=== PATIENT | female | born 1990 | race Two or more races ===

== ENCOUNTER 2019-10-15 06:20 | Inpatient (IN) | payer OTHER ==
[2019-10-15] MEDS ORDERED: OXYTOCIN 30 UNITS in 0.9% NS 30 UNIT/500 ML INFUS.BAG IVPB ONE (08:13)
--- NOTE | 2019-10-15 08:20 | HP ---
Past Medical History - Admission Chief Complaint: labor pain History of Present Illness: pt request for induction History Source: Patient Limitations to Obtaining History: No Limitations - Past Medical History TRUCK LOADER OVERHEAD CRANE: No: Alzheimer's, CVA, Dementia, Migraine, Multiple Sclerosis, Peripheral Neuropathy, Parkinson's, Seizure, Syncope, TIA, Vertigo, Other Cardiovascular: No: AFIB, Aneurysm, Aortic Insufficiency, Aortic Stenosis, CAD, CHF, Deep Vein Thrombosis, HTN, Hyperlipdemia, [place], Mitral Insufficiency, Mitral Stenosis, Murmur, Pulmonary Hypertension, Other Pulmonary: No: Asthma, Bronchitis, Cancer, COPD, O2 Dependent, Pneumonia, Previously Intubated, Pulmonary Embolus, Pulmonary Fibrosis, Sleep Apnea, Other Gastrointestinal: No: Ascites, Cancer, Constipation, Crohn's Disease, Diverticulitis, Diverticulosis, Esophageal Varices, Gastritis, GERD, GI Bleed, Hemorrhoids, Hiatal Hernia, Inflamatory Bowel Disease, Irritable Bowel Disease, Pancreatitis, Peptic Ulcer Disease, Ulcerative Colitis, Other Hepatobiliary: No: Cirrhosis, Cholelithiasis, Cholecystitis, Choledocholithiasis, Hepatitis A, Hepatitis B, Hepatitis C, Other Renal/: No: Renal Failure, Renal Inusuff, BPH, Cancer, Hematuria, Hemodialysis, Neurogenic Bladder, Renal Calculi, UTI, Other Reproductive: No: Ectopic , Endometriosis, Fibroids, PID, Polycystic Ovary Syndrome, Postmenopausal, Other ...Para: 1 Heme/Onc: No: Anemia, B12 Deficiency, Bleeding Disorder, Cancer, Current Chemotherapy, Current Radiation Therapy, Hemochromatosis, Hypercoaguable State, Myeloproliferative Synd, Sickle Cell Disease, Sickle Cell Trait, Thrombocytopenia, Other Infectious Disease: No: AIDS, C-Diff, Herpes Zoster, HIV, MRSA, STD's, Tuberculosis, VREF, Other Psych: No: Addictions, Anxiety, Bipolar, Depression, Panic, Psychosis, Schizophrenia, Other Musculoskeletal: No: Bursitis, Chronic low back pain, Hemiparesis, Hemiplegia, Osteoarthritis, Paraplegia, Other Rheumatology: No: Fibromyalgia, Gout, Lupus, Rheumatoid Arthritis, Sarcoidosis, Vasculitis, Other ENT: No: Allergic Rhinitis, Sinusitis, Other Endocrine: No: Antoni's Disease, Joanna's Disease, Diabetes Insipidus, Diabetes Mellitus, Hyperparathyroidism, Hyperthyroidism, Hypothyroidism, Osteopenia, SIADH, Other Dermatology: No: Basal Cell, Cellulitis, Eczema, Melanoma, Psoriasis, Squamous Cell, Other - Past Surgical History Past Surgical History: No: None, AAA Repair, AICD, Amputation, Appendectomy, Arthrosocopy, AV Fistula/Graft, Bariatric Surgery, Breast Biopsy, Bypass, CABG, Carotid Endarterectomy, Cataract Removal, Cholecystectomy, Colectomy, [place] noscopy, Colostomy, Craniotomy, , Cystectomy, Hernia Repair, Hysterectomy, Ileal Conduit, Ileosotomy, Joint Replacement, Kidney Transplant, Laminectomy, Liver Transplant, Mastectomy, Nephrectomy, Oopherectomy, Orchiectomy, Permanent Pacemaker, Prostatectomy, Splenectomy, Stent, Thoracotomy, TURP, Tonsillectomy, Tubal Ligation, Upper Endoscopy, Valve Replacement, Vasectomy, Vein Stripping/Ligation Hx Myomectomy: No Hx Transabdominal Cerclage: No - Advance Directives Advance Directives: Yes: Living Will - Smoking History Smoking history: Current every day smoker Have you smoked in the past 12 months: No - Alcohol/Substance Use Hx Alcohol Use: No History of Substance Use: reports: None - Social History Usual Living Arrangement: Yes: With Significant Other Do you think of yourself as: Straight/Heterosexual ADL: Independent History of Recent Travel: No Home Medications - Allergies Allergies/Adverse Reactions: Allergies Allergy/AdvReac Type Severity Reaction Status Date / Time shellfish derived Allergy Severe Difficulty Verified 10/15/19 08:09 Breathing Family Medical History Family History: Denies Review of Systems - Review of Systems Constitutional: reports: No Symptoms Eyes: reports: No Symptoms HENT: reports: No Symptoms Neck: reports: No Symptoms Cardiovascular: reports: No Symptoms Respiratory: reports: No Symptoms Gastrointestinal: reports: No Symptoms Genitourinary: reports: No Symptoms Breasts: reports: No Symptoms Reported Musculoskeletal: reports: No Symptoms Integumentary: reports: No Symptoms Neurological: reports: No Symptoms Endocrine: reports: No Symptoms Hematology/Lymphatic: reports: No Symptoms Psychiatric: reports: No Symptoms Physical Exam - Maternity Constitutional: Yes: Well Nourished, No Distress, Calm Eyes: Yes: WNL, Conjunctiva Clear, EOM Intact HENT: Yes: WNL, Atraumatic, Normocephalic Neck: Yes: WNL, Supple, Trachea Midline Cardiovascular: Yes: WNL, Regular Rate and Rhythm Lungs: Clear to auscultation Breast(s): Yes: WNL - Abdominal Exam/OB Number of Fetuses: Single Presentation: Vertex Contractions: Yes Regularity: Irregular Intensity: Mild Monitor Mode: External Heart Rate Location: LLQ Accelerations: Uniform Decelerations: None - Vaginal Exam/OB Vaginal Bleeding: No Speculum Exam: No Dilatation (cm): 2 Effacement (%): 60 Amniotic Membrane Status: Ruptured Amniotic Fluid: Yes: Blood Stained Presentation: Vertex/Position Station: -2 - Physical Exam Musculoskeletal: Yes: WNL Extremities: Yes: WNL Edema: Yes Edema: LUE: 1+, RUE: 1+, LLE: 1+, RLE: 1+ Integumentary: Yes: WNL Deep Tendon Reflex Grade: Normal +2 ...Motor Strength: WNL Psychiatric: Yes: WNL, Alert, Oriented Hemorrhage Risk Assessment - Risk Factors Medium Risk Factors: Yes: None High Risk Factors: Yes: None Risk Score: 1 Risk Level: Medium Risk Assessment/Plan for induction per dr zepeda
[2019-10-15] MEDS: ELECTROLYTE-148 SOLN 1,000 ML IV SCH (08:30)
[2019-10-15] MEDS ORDERED: OXYTOCIN 30 UNITS in 0.9% NS 30 UNIT/500 ML INFUS.BAG IVPB SCH (08:30)
[2019-10-15 08:55] VITALS: BMI 25.6
[2019-10-15 09:07] LABS: BASO % 0.2 % (0-2.0); EOS % 0.8 % (0-4.5); HEMATOCRIT 33.2 % (32.4-45.2); LYMPH % 21.2 % (8-40); MCH 30.9 pg (25.7-33.7); MEAN CELL VOLUME 93.5 fl (80-96); MEAN PLT VOLUME 9.5 fl (7.5-11.1); MONO % 6.7 % (3.8-10.2); NEUT % 71.1 % (42.8-82.8); PLATELET COUNT 148 K/MM3 (134-434); RBC 3.55 M/mm3 (3.60-5.2); WHITE BLOOD COUNT 5.2 K/mm3 (4.0-10.0)
[2019-10-15 09:13] LABS: INR 0.87 (0.83-1.09); PROTHROMBIN TIME (PATIENT) 10.2 SEC (9.7-13.0)
[2019-10-15 09:16] LABS: ACTIVATED PTT 26.5 SECONDS (25.2-36.5)
[2019-10-15 09:34] LABS: BLOOD UREA NITROGEN 7.6 mg/dL (7-18); CALCIUM 8.8 mg/dL (8.5-10.1); CREATININE 0.5 mg/dL (0.55-1.3); POTASSIUM 3.7 mmol/L (3.5-5.1)
[2019-10-15] MEDS ORDERED: PCA PUMP NR ONE (12:27)
[2019-10-15] MEDS ORDERED: FENTANYL/BUPIVACAINE/NS/PF - PCEA - 50 ML DISP.SYRIN EP ONE (12:28)
[2019-10-15] MEDS ORDERED: BUPIVACAINE HCL/PF 0.25% (2.5MG/ML) 10 ML VIAL ONE (13:00)
[2019-10-15] MEDS: FENTANYL/BUPIVACAINE/NS/PF - PCEA - 50 ML DISP.SYRIN EP SCH (13:15)
[2019-10-15] MEDS ORDERED: NALOXONE HCL 0.4 MG/ML VIAL IVPUSH PRN (15:51)
[2019-10-15] MEDS ORDERED: OXYTOCIN 20 UNITS in 0.9% NS 20 UNIT/1,000 ML INFUS.BAG IV ONE (16:12)
[2019-10-15] MEDS: OXYTOCIN 20 UNITS in 0.9% NS 20 UNIT/1,000 ML INFUS.BAG IV SCH (16:53)
[2019-10-15] MEDS ORDERED: BENZOCAINE 28 GM HEMORRHOIDAL OINTMENT TP PRN (17:07)
[2019-10-15] MEDS ORDERED: WITCH HAZEL 50% (TUCKS) 40 PAD/JAR PAD TP PRN (17:07)
[2019-10-15] MEDS ORDERED: METHYLERGONOVINE MALEATE 0.2 MG/1 ML AMP IM PRN (17:07)
[2019-10-15] MEDS ORDERED: BENZOCAINE 20% 57 GM BOTTLE TP PRN (17:07)
[2019-10-15] MEDS ORDERED: BISACODYL 10 MG SUPP.RECT RC PRN (17:07)
--- NOTE | 2019-10-15 17:11 | PN ---
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
[2019-10-15] MEDS: DEXTROSE 5%-LACTATED RINGERS 1,000 ML IV SCH (17:44)
[2019-10-15] MEDS: ACETAMINOPHEN 325 MG TABLET (FP) PO PRN (20:56)
[2019-10-15] MEDS: IBUPROFEN 600 MG TABLET (FP) PO PRN (20:56)
[2019-10-16] MEDS: ACETAMINOPHEN 325 MG TABLET (FP) PO PRN ×5 (02:37→22:08)
[2019-10-16] MEDS: IBUPROFEN 600 MG TABLET (FP) PO PRN ×3 (02:37→22:08)
[2019-10-16 08:01] LABS: BASO % 0.3 % (0-2.0); HEMATOCRIT 29.5 % (32.4-45.2); HEMOGLOBIN 9.9 GM/dL (10.7-15.3); LYMPH % 19.3 % (8-40); MCH 31.2 pg (25.7-33.7); MCHC 33.7 g/dl (32.0-36.0); MEAN CELL VOLUME 92.6 fl (80-96); MEAN PLT VOLUME 9.8 fl (7.5-11.1); MONO % 6.4 % (3.8-10.2); PLATELET COUNT 121 K/MM3 (134-434); RBC 3.18 M/mm3 (3.60-5.2); RDW 14.6 % (11.6-15.6); WHITE BLOOD COUNT 7.9 K/mm3 (4.0-10.0)
[2019-10-16] MEDS: oxyCODONE HCL 5 MG TABLET PO PRN ×2 (08:26→17:32)
[2019-10-16] MEDS: PRENATAL VITAMINS W/ FOLIC ACID TABLET (FP) PO SCH (09:36)
--- NOTE | 2019-10-16 10:52 | PN ---
Post Progress Note Post Day: 1 Type of Delivery: Vital Signs: Vital Signs Temperature 98.1 F 10/15/19 22:27 Pulse Rate 76 10/15/19 22:27 Respiratory Rate 20 10/15/19 22:27 Blood Pressure 104/65 10/15/19 22:27 O2 Sat by Pulse Oximetry (%) 100 10/15/19 16:30 Breast Exam: Yes: Soft Uterus: Yes: Fundus Firm Incision: Yes: Dressing dry and intact Abdomen/GI: Yes: Abdomen soft, Tolerating PO Lochia: Yes: Serosa Lochia, amount: Small Extremities: Yes: Calves non-tender Perineum: Yes: Laceration Activity: Ambulating - Labs Labs: CBC WBC 7.9 K/mm3 (4.0-10.0) 10/16/19 07:35 RBC 3.18 M/mm3 (3.60-5.2) L 10/16/19 07:35 Hgb 9.9 GM/dL (10.7-15.3) L 10/16/19 07:35 Hct 29.5 % (32.4-45.2) L 10/16/19 07:35 MCV 92.6 fl (80-96) 10/16/19 07:35 MCH 31.2 pg (25.7-33.7) 10/16/19 07:35 MCHC 33.7 g/dl (32.0-36.0) 10/16/19 07:35 RDW 14.6 % (11.6-15.6) 10/16/19 07:35 Plt Count 121 K/MM3 (134-434) L 10/16/19 07:35 MPV 9.8 fl (7.5-11.1) 10/16/19 07:35 Absolute Neuts (auto) 5.8 K/mm3 (1.5-8.0) 10/16/19 07:35 Neutrophils % 73.0 % (42.8-82.8) 10/16/19 07:35 Lymphocytes % 19.3 % (8-40) 10/16/19 07:35 Monocytes % 6.4 % (3.8-10.2) 10/16/19 07:35 Eosinophils % 1.0 % (0-4.5) 10/16/19 07:35 Basophils % 0.3 % (0-2.0) 10/16/19 07:35 Nucleated RBC % 0 % (0-0) 10/16/19 07:35 Assessment/Plan dc pt home tomorrow
--- NOTE | 2019-10-16 10:54 | DS ---
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 Vital Signs: Vital Signs Temperature 98.1 F 10/15/19 22:27 Pulse Rate 76 10/15/19 22:27 Respiratory Rate 20 10/15/19 22:27 Blood Pressure 104/65 10/15/19 22:27 O2 Sat by Pulse Oximetry (%) 100 10/15/19 16:30 Constitutional: Yes: Well Nourished, No Distress, Calm Eyes: Yes: WNL, Conjunctiva Clear, EOM Intact HENT: Yes: WNL, Atraumatic, Normocephalic Neck: Yes: WNL, Supple, Trachea Midline Cardiovascular: Yes: WNL, Regular Rate and Rhythm Respiratory: Yes: WNL, Regular, CTA Bilaterally Gastrointestinal: Yes: WNL, Normal Bowel Sounds, Soft ...Rectal Exam: Yes: WNL Renal/: Yes: WNL Pelvis: Yes: WNL External Genitalia: Yes: Normal Internal Exam Deferred: No Vaginal Exam: Yes: Normal Cervix: Yes: Normal Uterus: Yes: Normal Adnexa: Normal: Bilateral ....Post : Yes: Uterus firm, Uterus non-tender Breast(s): Yes: WNL Musculoskeletal: Yes: WNL Extremities: Yes: WNL Edema: Yes Integumentary: Yes: WNL Wound/Incision: Yes: Clean/Dry, Well Approximated Neurological: Yes: WNL, Alert, Oriented ...Motor Strength: WNL Psychiatric: Yes: WNL, Alert, Oriented Labs: CBC, BMP 10/16/19 07:35 10/15/19 08:38 Delivery - Delivery Vaginal Delivery: No Problems Type of Anesthesia: Epidural Episiotomy/Laceration: 1st degree EBL (cc): 200 Delivery, Single - Stages of Labor Date 1st Stage Initiatied: 10/15/19 Time 1st Stage Initiated: 13:00 Date 2nd Stage Initiated: 10/15/19 Time 2nd Stage Initiated: 16:30 Date of Delivery: 10/15/19 Time of Delivery: 16:51 Time Placenta Delivered: 16:53 Placenta: Yes: Spontaneous - 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 You may walk unlimited odell of and climb stairs. You may resume driving the car when you feel safe and comfortable behind the wheel. No sexual activity as instructed. Wound care If you have a bandage, leave it on, and keep dry for 48-72 hours. After that time discard the outer bandage. If they are tapes on the skin under the out of bandage leave them in place. They will peel off in the next 7 to 10 days. Do Not Peel them off. You may shower the day after surgery. If there are tapes present on the skin, you may shower over them. Diet There are no dietary restrictions. Eat healthy, high-fiber foods. Drink 6 to 8 glasses of liquid each day. This will assist in keeping your bowels are regular. Pain management You may take Tylenol or acetaminophen or Ibuprofen (for example, Motrin, Advil etc.) from my pain prescription medication is ordered should be taken as prescribed for moderate to severe pain. Call MD for any of the following: f u in 6 weeks w aguila carvalho Severe pain not relieved by medication Fever of 101 or higher Excessive bleeding or drainage on dressing Inability to urinate Disposition: HOME - Home Medications Comprehensive Discharge Medication List: Ambulatory Orders Calcium Carbonate [Calcium] 500 mg PO DAILY 10/15/19 [place] Oil 1 dose PO ONCE 10/15/19 Folic Acid - 1 tab PO DAILY 10/15/19 Pnv No.95/Ferrous Fum/Folic AC [ Caplet] 1 tab PO DAILY 10/15/19 Prescription Drug Monitoring Program (I-STOP) results: I-STOP reviewed and no issues identified
[2019-10-16] MEDS: DEXTROSE 5%-LACTATED RINGERS 1,000 ML IV SCH (21:15)
[2019-10-16] MEDS: FENTANYL/BUPIVACAINE/NS/PF - PCEA - 50 ML DISP.SYRIN EP SCH (21:16)
[2019-10-16] MEDS: ELECTROLYTE-148 SOLN 1,000 ML IV SCH (21:16)
[2019-10-16] MEDS ORDERED: SENNOSIDES/DOCUSATE COMBO (SENNA PLUS) TABLET (UD) PO PRN (22:00)
[2019-10-16] MEDS: OXYTOCIN 20 UNITS in 0.9% NS 20 UNIT/1,000 ML INFUS.BAG IV SCH (23:33)
[2019-10-17] MEDS: IBUPROFEN 600 MG TABLET (FP) PO PRN ×2 (05:44→12:18)
[2019-10-17] MEDS: ACETAMINOPHEN 325 MG TABLET (FP) PO PRN ×2 (05:45→12:17)
[2019-10-17] MEDS: PRENATAL VITAMINS W/ FOLIC ACID TABLET (FP) PO SCH (09:30)
[2019-10-17 11:24] VITALS: BP 101/67; PULSE 76; TEMP 98.6
== END 2019-10-17 12:35 | disposition home or self-care (01) | DRG 560 ==
LOC: JLDR 06:20 → J3W 20:52
PROVIDERS: ADMIT Obstetrics & Gynecology; ATTEND Obstetrics & Gynecology
PROC: 0HQ9XZZ Repair Perineum Skin, External Approach (ICD-10-PCS; principal; 2019-10-15)
PROC: 10E0XZZ Delivery of Products of Conception, External Approach (ICD-10-PCS; 2019-10-15)
DX: O70.0 First degree perineal laceration during delivery (principal); Z3A.39 39 weeks gestation of pregnancy; Z37.0 Single live birth
CPT/HCPCS: 36415; 59409; 80048; 85025; 85610; 85730; 86780; 86850; 86900; 86901; 87389; U0003

== ENCOUNTER 2022-02-18 19:40 | Inpatient (IN) | payer OTHER ==
[2022-02-18] MEDS ORDERED: AMPICILLIN SODIUM 2 GM VIAL ONE (21:56)
[2022-02-18] MEDS ORDERED: AMPICILLIN - 2 GM in SODIUM CHLORIDE 100 ML IVPB ONE (22:06)
[2022-02-18] MEDS ORDERED: ELECTROLYTE-148 SOLN 1,000 ML IV SCH (22:15)
[2022-02-18 22:37] LABS: BASO % 0.6 % (0-2.0); EOS % 0.1 % (0-4.5); HEMATOCRIT 33.4 % (32.4-45.2); HEMOGLOBIN 11.2 GM/dL (10.7-15.3); MCH 30.2 pg (25.7-33.7); MCHC 33.5 g/dl (32.0-36.0); MEAN CELL VOLUME 90.3 fl (80-96); MEAN PLT VOLUME 9.6 fl (7.5-11.1); MONO % 6.7 % (3.8-10.2); NEUT % 83.6 % (42.8-82.8); PLATELET COUNT 199 10^3/uL (134-434); RBC 3.69 M/mm3 (3.60-5.2); RDW 14.3 % (11.6-15.6); WHITE BLOOD COUNT 10.9 K/mm3 (4.0-10.0)
[2022-02-18 22:42] LABS: PROTHROMBIN TIME (PATIENT) 11.5 SEC (9.7-13.0)
[2022-02-18 22:44] LABS: ACTIVATED PTT 25.6 SECONDS (25.2-36.5)
[2022-02-18] MEDS ORDERED: LIDOCAINE HCL 1% PRESERVATIVE FREE - 30ML VIAL ONE (22:50)
[2022-02-18] MEDS ORDERED: OXYTOCIN 20 UNITS in 0.9% NS 20 UNIT/1,000 ML INFUS.BAG IV ONE (22:50)
[2022-02-18 22:59] LABS: CALCIUM 9.1 mg/dL (8.5-10.1)
[2022-02-18 23:00] LABS: BLOOD UREA NITROGEN 7.1 mg/dL (7-18)
[2022-02-18 23:03] LABS: CREATININE 0.4 mg/dL (0.55-1.3)
[2022-02-18] MEDS ORDERED: IBUPROFEN 600 MG TABLET (FP) PO ONE (23:25)
[2022-02-18] MEDS: IBUPROFEN 600 MG TABLET (FP) PO PRN (23:27)
[2022-02-19 00:06] VITALS: BMI 25.1
[2022-02-19] MEDS ORDERED: WITCH HAZEL 50% (TUCKS) 40 PAD/JAR PAD TP PRN (00:34)
[2022-02-19] MEDS ORDERED: oxyCODONE HCL 5 MG TABLET PO PRN (00:34)
[2022-02-19] MEDS ORDERED: BENZOCAINE 28 GM HEMORRHOIDAL OINTMENT TP PRN (00:34)
[2022-02-19] MEDS ORDERED: BENZOCAINE 20% 57 GM BOTTLE TP PRN (00:34)
[2022-02-19] MEDS ORDERED: METHYLERGONOVINE MALEATE 0.2 MG/1 ML AMP IM PRN (00:34)
[2022-02-19] MEDS ORDERED: ACETAMINOPHEN 325 MG TABLET (FP) PO PRN (00:34)
[2022-02-19] MEDS ORDERED: BISACODYL 10 MG SUPP.RECT RC PRN (00:34)
[2022-02-19] MEDS ORDERED: oxyCODONE HCL 5 MG TABLET ONE (00:39)
[2022-02-19] MEDS ORDERED: OXYTOCIN 20 UNITS in 0.9% NS 20 UNIT/1,000 ML INFUS.BAG IV SCH (00:45)
[2022-02-19] MEDS: AMPICILLIN - 1 GM in SODIUM CHLORIDE 100 ML IVPB SCH ×2 (02:30→06:18)
[2022-02-19 07:16] LABS: BASO % 0.4 % (0-2.0); HEMATOCRIT 31.1 % (32.4-45.2); HEMOGLOBIN 10.4 GM/dL (10.7-15.3); LYMPH % 6.1 % (8-40); MCH 30.3 pg (25.7-33.7); MCHC 33.3 g/dl (32.0-36.0); MEAN CELL VOLUME 90.9 fl (80-96); MEAN PLT VOLUME 9.8 fl (7.5-11.1); MONO % 6.3 % (3.8-10.2); NEUT % 87.2 % (42.8-82.8); PLATELET COUNT 205 10^3/uL (134-434); RBC 3.42 M/mm3 (3.60-5.2); RDW 14.3 % (11.6-15.6)
[2022-02-19] MEDS: IBUPROFEN 600 MG TABLET (FP) PO PRN ×3 (09:44→20:26)
[2022-02-20] MEDS: IBUPROFEN 600 MG TABLET (FP) PO PRN (08:34)
[2022-02-20 10:39] VITALS: BP 99/58; PULSE 61; RESP 16; TEMP 97.8
[2022-02-20] MEDS ORDERED: SENNOSIDES/DOCUSATE COMBO (SENNA PLUS) TABLET (UD) PO PRN (22:00)
== END 2022-02-20 13:40 | disposition home or self-care (01) | DRG 560 ==
LOC: JDEL 19:40 → JLDR 22:00 → J3W 02-19 07:20
PROVIDERS: ADMIT Obstetrics & Gynecology; ATTEND Obstetrics & Gynecology
PROC: 10E0XZZ Delivery of Products of Conception, External Approach (ICD-10-PCS; principal; 2022-02-18)
PROC: 10907ZC Drainage of Amniotic Fluid, Therapeutic from Products of Conception, Via Natural or Artificial Opening (ICD-10-PCS; 2022-02-18)
DX: O60.14X0 Preterm labor third trimester with preterm delivery third trimester, not applicable or unspecified (principal); Z3A.36 36 weeks gestation of pregnancy; Z37.0 Single live birth
CPT/HCPCS: 36415; 59409; 80048; 85025; 85610; 85730; 86762; 86780; 86850; 86900; 86901; 88307-TC; C9803-CS; U0003; U0005